=== PATIENT | female | born 1930 | race Caucasian/White ===

== ENCOUNTER 2017-04-02 14:43 | Emergency (ER) | payer MEDICARE, BC ==
[~2017-04-02] VITALS: Ht 162.6 cm; Wt 47.6 kg
[2017-04-02] MEDS ORDERED: MIRTAZAPINE7.5 MG ORAL (14:51)
[2017-04-02] MEDS ORDERED: LEXAPRO10 MG ORAL (14:51)
[2017-04-02 15:00] VITALS: BP 125/76
--- NOTE | 2017-04-02 15:09 | Emergency Room Report ---
History of Present Illness General Chief Complaint: General Complaint Source: Patient Present Illness HPI [id number] walk-in with daughter from colorectal surgeon office for "dehydration." Daughter endorses mom not drinking enough water Patient asymptomatic. Denies dehydration, loss of appetitie. "no pain whatsoever." Denies fever/chills, chest pain, sob, abd pain Takes medications lexapro/mirtazepine "for long time" for depression Allergies: Coded Allergies: No Known Allergies (Unverified , 04/02/17) Patient History Past Medical History: other - depression, HLD Past Surgical History: none Pertinent Family History: none Social History: Denies: alcohol use, drug use, smoking Now: No Immunizations: UTD Reviewed Nursing Documentation: PMH: Agreed, PSxH: Agreed Nursing Documentation-PMH Past Medical History: No Stated History History Of Psychiatric Problem: Yes - DEPRESSION Review of Systems All Other Systems: negative except mentioned in HPI Physical Exam Vital Signs Date Time Temp Pulse Resp B/P Pulse Ox O2 Delivery O2 Flow Rate FiO2 04/02/17 14:47 97.3 75 20 111/75 99 Room Air Sp02 EP Interpretation: reviewed, normal General Appearance: normal inspection, well appearing, no apparent distress, alert, GCS 15, non-toxic Head: normocephalic, atraumatic Eyes: bilateral eye EOMI, bilateral eye PERRL ENT: normal ENT inspection, hearing grossly normal, normal voice, dry mucus membranes Neck: normal inspection, full range of motion, supple, no bony tend Respiratory: normal inspection, lungs clear, normal breath sounds, no respiratory distress, no retraction, no wheezing Cardiovascular #1: regular rate, rhythm, no edema Gastrointestinal: normal inspection, normal bowel sounds, non tender, soft, no guarding, no hernia Genitourinary: no CVA tenderness Musculoskeletal: normal inspection, back normal, normal range of motion, Rekha' s Sign negative Neurologic: normal inspection, alert, oriented x3, responsive, 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 H&H stable Patient refused CXR. However low suspicion for PNA, CHF UA with +LE, some bacteria. + ketones No roxy ?dehydration given ketones in urine. Was hydrated here. Ambulating with steady gait. No focal neuro deficits. Doubt CVA Will tx for UTI PMD followup as needed DC home EKG Diagnostic Results Rate: normal Rhythm: NSR ST Segments: no acute changes ASA given to the pt in ED: No Rhythm Strip Diag. Results EP Interpretation: yes Rate: 56 Rhythm: NSR, no PVC's, no ectopy Last Vital Signs Date Time Temp Pulse Resp B/P Pulse Ox O2 Delivery O2 Flow Rate FiO2 04/02/17 14:47 97.3 75 20 111/75 99 Room Air Status: improved Disposition: HOME, SELF-CARE Scripts Nitrofurantoin Monohyd/M-Cryst* (MACROBID 100 MG*) 100 Mg Capsule 100 MG ORAL EVERY 12 HOURS for 7 Days, #14 CAP Prov: JOELLE OMALLEY M.D. 04/02/17 JOELLE OMALLEY M.D. Apr 02, 2017 15:09
[2017-04-02 15:38] LABS: EOSINOPHILS % (AUTO) 5.7 % (0.0-3.0); LYMPHOCYTES % (AUTO) 22.5 % (20.0-45.0); MEAN CORPUSCULAR HEMOGLOBIN 31.4 PG (27.0-31.0); MEAN CORPUSCULAR HGB CONC 34.7 G/DL (32.0-36.0); MEAN CORPUSCULAR VOLUME 91 FL (80-99); MEAN PLATELET VOLUME 8.5 FL (6.5-10.1); MONOCYTES % (AUTO) 7.7 % (1.0-10.0); NEUTROPHILS % (AUTO) 63.1 % (45.0-75.0); PLATELET COUNT 262 K/UL (150-450); RED BLOOD COUNT 4.58 M/UL (4.20-5.40); RED CELL DISTRIBUTION WIDTH 12.6 % (11.6-14.8); WHITE BLOOD COUNT 8.9 K/UL (4.8-10.8)
[2017-04-02 15:55] LABS: ALANINE AMINOTRANSFERASE 9 U/L (3-33); ALBUMIN/GLOBULIN RATIO 1.9 (1.0-2.7); ANION GAP 10 (5-15); ASPARTATE AMINO TRANSFERASE 23 U/L (5-40); CALCIUM 9.6 mg/dL (8.6-10.2); CARBON DIOXIDE 27 mEQ/L (20-30); CHLORIDE 104 mEQ/L (98-107); CREATININE 0.8 mg/dL (0.5-0.9); HEMOLYSIS 7; POTASSIUM 4.4 mEQ/L (3.4-4.9); SODIUM 141 mEQ/L (135-145); TOTAL PROTEIN 6.5 g/dL (6.6-8.7); TROPONIN I < 0.30 ng/mL (<=0.30)
[2017-04-02 16:05] LABS: CKMB 1.8 ng/mL (< 3.8)
[2017-04-02 16:23] LABS: APPEARANCE,URINE CLEAR; KETONES,URINE 2+ (NEGATIVE); LEUKOCYTE ESTERASE ,URINE 1+ (NEGATIVE); NITRITE,URINE NEGATIVE (NEGATIVE); PH,URINE 6 (4.5-8.0); PROTEIN,URINE NEGATIVE (NEGATIVE); UROBILINOGEN,URINE 1 MG/DL (0.0-1.0)
[2017-04-02 16:32] LABS: RBC,URINE 0-2 /HPF (0 - 2); SQUAMOUS EPITHELIAL CELL,UR OCCASIONAL /LPF (NONE/OCC); WBC,URINE 0-2 /HPF (0 - 2)
[2017-04-02 16:33] LABS: BACTERIA,URINE FEW /HPF; CALCIUM OXALATE CRYSTALS,UR MANY /LPF; MUCUS,URINE MODERATE /LPF (NONE/OCC)
[2017-04-02] MEDS ORDERED: NITROFURANTOIN100 M2 ORAL (16:38)
[2017-04-02 16:39] LABS: ICTOTEST NEGATIVE
[2017-04-02 16:55] VITALS: BP 128/73
--- NOTE | 2017-04-05 17:19 | Cardiology Report ---
APPROVED REPORT EKG Measurement Heart [id number] Normal sinus rhythm Possible septal infarction, age undetermined Abnormal ECG
== END 2017-04-02 16:55 | disposition home or self-care (01) ==
LOC: EMR 15:43
DX: R53.1 Weakness (principal); E86.0 Dehydration; N30.00 Acute cystitis without hematuria
CPT/HCPCS: 36415; 80053; 81001; 82550; 82553; 84484; 85025; 93005; 96360; 96374; 99284